=== PATIENT | male | born 1935 | race Caucasian/White ===

== ENCOUNTER 2016-06-26 17:12 | Emergency (ER) | payer OTHER ==
[2016-06-26 17:21] VITALS: BP 137/50; PULSE 55; TEMP 98; BMI 26.6
--- NOTE | 2016-06-26 18:18 | PDOC ---
[id number] INJURY Time Seen by Provider: 06/26/16 17:57 History Source: Patient Exam Limitations: No Limitations - History of Present Illness Initial Comments: 06/26/16 18:11 81-year-old male presents the ED with status post mechanical fall. Patient states on Monday was walking his dog when he tripped forward landing on his left wrist. Patient states initially had no pain or swelling but as time went on swelling and pain increased so decided come to the ER today. Patient states is on no blood thinners but is a diabetic. Patient denies previous injury to the affected area and denies any sensory changes distally Occurred: reports: other (2 days ago) Severity: reports: moderate Pain Location: reports: upper extremity Method of Injury: Yes: fall Modifying Factors: improves with: None Associated Symptoms (Fall): denies symptoms Past History - Past Medical History Allergies/Adverse Reactions: Allergies Allergy/AdvReac Type Severity Reaction Status Date / Time naproxen sodium [From Aleve] Allergy Verified 06/26/16 17:21 Home Medications: Ambulatory Orders Glyburide [Micronase -] 5 mg PO BID 09/18/14 Irbesartan 300 mg PO ASDIR 09/18/14 Metformin HCl [Metformin HCl ER] 1,000 mg PO BID 09/18/14 Diabetes: Yes HTN: Yes - Psycho/Social/Smoking Cessation Hx Anxiety: No Suicidal Ideation: No Smoking History: Former smoker Have you smoked in the past 12 months: No Information on smoking cessation initiated: No Hx Alcohol Use: Yes (OCCASIONALLY) Substance Use Type: Alcohol Patient Lives Alone: No Lives with/in: spouse/SO Review of Systems - Review of Systems Able to Perform ROS?: Yes Constitutional: No: Symptoms Reported Musculoskeletal: Yes: Joint Pain (left wrist) Integumentary: Yes: Erythema, Lumps Neurological: No: Symptoms reported Endocrine: No: Symptoms Reported Hematologic/Lymphatic: No: Symptoms Reported *Physical Exam - Vital Signs Last Vital Signs Temp Pulse Resp BP Pulse Ox 98 F 55 L 18 137/50 97 06/26/16 17:17 06/26/16 17:17 06/26/16 17:17 06/26/16 17:17 06/26/16 17:17 - Physical Exam General Appearance: Yes: Nourished, Appropriately Dressed. No: Apparent Distress Extremity: positive: Normal Capillary Refill. negative: Normal Inspection ( noted mild deformity of the lateral aspect of left wrist and noted edema) Integumentary: positive: Normal Color, Warm, Swelling, Ecchymosis Neurologic: positive: Motor Strength 5/5 (full range of left fingers) ED Treatment Course - RADIOLOGY Radiology Studies Ordered: Category Date Time Status FOREARM- LEFT [RAD] Stat Radiology 06/26/16 18:07 Ordered WRIST-LEFT [RAD] Stat Radiology 06/26/16 18:07 Ordered Medical Decision Making - Medical Decision Making 06/26/16 18:16 Pt s/p fall onto left wrist now with swelling and LROM. Pt with deformity to distal ulna and with point tenderness to lateral aspect of left wrist. Xray ordered of the wrist and forearm 06/26/16 18:23 X-ray shows questionable nondisplaced fracture of the distal ulna. Pt placed in a splint and told to follow-up with Dr. Suarez. *DC/Admit/Observation/Transfer Diagnosis at time of Disposition: Wrist fracture, left Qualifiers: Encounter type: initial encounter Fracture type: closed Qualified Code(s): S62.102A - Fracture of unspecified carpal bone, left wrist, initial encounter for closed fracture - Discharge Dispostion Disposition: HOME Condition at time of disposition: Good - Referrals Referrals: Jaya Suarez MD [Staff Physician] - - Patient Instructions Printed Discharge Instructions: DI for Wrist Pain Additional Instructions: Please follow-up with referred orthopedist. Please apply ice to the affected area. Please take Motrin for discomfort
== END 2016-06-26 18:42 | disposition home or self-care (01) ==
LOC: JERFT 17:12
PROC: 2W39X1Z Immobilization of Left Upper Extremity using Splint (ICD-10-PCS; principal; 2016-06-26)
DX: S52.692A Other fracture of lower end of left ulna, initial encounter for closed fracture (principal); W18.39XA Other fall on same level, initial encounter; Y93.K1 Activity, walking an animal; Y92.89 Other specified places as the place of occurrence of the external cause; I10 Essential (primary) hypertension; E11.9 Type 2 diabetes mellitus without complications; Z79.84 Long term (current) use of oral hypoglycemic drugs
CPT/HCPCS: 29125; 73090-TC-LT; 73110-TC-LT; 99281-25